=== PATIENT | male | born 1950 | race American Indian/Alaskan Native ===

== ENCOUNTER 2021-01-20 05:54 | Observation (INO) | payer OTHER ==
[2021-01-14 12:56] LABS: Hematocrit 46.6 % (35.5-45.6); Hemoglobin 15.9 gm/dl (11.8-15.2); Mean Corpuscular HGB Conc 34 % (32-34); Mean Corpuscular Volume 89 fl (84-94); Platelet Count 286 K/mm3 (140-440); Red Blood Count 5.26 M/mm3 (3.65-5.03); Red Cell Distribution Width 14.3 % (13.2-15.2)
[2021-01-14 13:14] LABS: Alanine Aminotransferase 41 units/L (7-56); Albumin 4.4 g/dL (3.9-5); BUN/Creatinine Ratio 20; Blood Urea Nitrogen 24 mg/dL (9-20); Hemolysis Index 2
--- NOTE | 2021-01-14 17:37 | Anesthesia Consultation ---
Anesthesia Consult and Med Hx Date of service: 01/20/21 - Airway Anesthetic Teeth Evaluation: Bridges ROM Head & Neck: Adequate Mental/Hyoid Distance: Adequate Mallampati Class: Class II Intubation Access Assessment: Good - Pre-Operative Health Status ASA Pre-Surgery Classification: ASA2 Proposed Anesthetic Plan: General Nerve Block: TAP - Pulmonary Hx Smoking: No Hx Respiratory Symptoms: No (+2FS) Hx Sleep Apnea: No (BAKARI PRE SCREEN HIGH RISK) - Cardiovascular System Hx Hypertension: Yes - Central Nervous System Hx Back Pain: Yes Hx Psychiatric Problems: No - Gastrointestinal Hx Gastroesophageal Reflux Disease: No - Endocrine Hx Renal Disease: No Hx Non-Insulin Dependent Diabetes: No - Other Systems Hx Cancer: Yes (Prostate)
[2021-01-20] MEDS ORDERED: fentaNYL 100 MCG/2 ML INJ IV ONE (06:00)
[2021-01-20] MEDS ORDERED: GABAPENTIN 300 MG CAP PO NR (06:00)
[2021-01-20] MEDS ORDERED: MAGNESIUM OXIDE 400 MG TAB PO ONE (06:00)
[2021-01-20] MEDS ORDERED: CELECOXIB 200 MG CAP PO NR (06:00)
[2021-01-20] MEDS ORDERED: MIDAZOLAM 2 MG/2 ML INJ IV NR (06:00)
[2021-01-20] MEDS ORDERED: ACETAMINOPHEN 500 MG TAB PO ONE (06:00)
[2021-01-20] MEDS ORDERED: BACTERIOSTATIC SODIUM CHLORIDE 0.9% 30 ML VIAL INFILTRATI ONE (06:18)
--- NOTE | 2021-01-20 06:46 | Anesthesia Day of Surgery ---
Anesthesia Day of Surgery - Day of Surgery Patient Examined: Yes Patient H&P Reviewed: Yes Patient is NPO: Yes
[2021-01-20] MEDS: LACTATED RINGERS 1,000 ML IV SCH ×2 (06:50→14:47)
[2021-01-20] MEDS ORDERED: BUPIVACAINE-EPINEPHRINE/PF 0.5%-1:200,000 (30 ML) VIAL INFILTRATI ONE (07:10)
[2021-01-20] MEDS ORDERED: SODIUM CHLORIDE 0.9% 500 ML 500 ML ONE (07:10)
[2021-01-20] MEDS ORDERED: cloNIDine/PF 1,000 MCG/10 ML VIAL EP ONE (07:10)
[2021-01-20] MEDS ORDERED: dexAMETHasone 4 MG/ML VIAL ONE (07:10)
[2021-01-20] MEDS ORDERED: ceFAZolin/STERILE WATER 2 GM/20 ML SYRINGE IV NR (07:35)
[2021-01-20] MEDS ORDERED: CALCIUM CHLORIDE 1,000 MG/10 ML SYRINGE IV ONE ×2 (07:44→09:03)
[2021-01-20] MEDS ORDERED: CITRIC ACID-SOD CITRATE 500 ML IV ONE (07:44)
[2021-01-20] MEDS ORDERED: THROMBIN (RECOMBINANT) 5,000 UNIT VIAL TP ONE ×2 (07:45→09:04)
[2021-01-20] MEDS ORDERED: METHYLENE BLUE 50 MG/10 ML AMP ONE (07:45)
[2021-01-20] MEDS ORDERED: ROCURONIUM 50 MG/5 ML INJ IV ONE (07:57)
[2021-01-20] MEDS ORDERED: propofoL 200 MG/20 ML VIAL IV ONE (07:58)
[2021-01-20] MEDS ORDERED: fentaNYL 100 MCG/2 ML INJ ONE ×2 (07:58→08:16)
[2021-01-20] MEDS ORDERED: ONDANSETRON 4 MG/2 ML INJ ONE (07:58)
[2021-01-20] MEDS ORDERED: LIDOCAINE MPF (2%) 20 MG/1 ML VIAL 5 ML ONE (07:58)
[2021-01-20] MEDS ORDERED: PHENYLEPHRINE/NS 1,000 MCG/10 ML SYRINGE (OR USE) IV ONE (07:58)
[2021-01-20] MEDS ORDERED: NEOSTIGMINE 10MG/10 ML INJ MDV ONE (07:58)
[2021-01-20] MEDS ORDERED: dexAMETHasone 20 MG/5 ML VIAL ONE (07:58)
[2021-01-20] MEDS ORDERED: SUCCINYLCHOLINE CHLORIDE 200 MG/10 ML INJ MDV ONE (07:58)
[2021-01-20] MEDS ORDERED: GLYCOPYRROLATE 0.4 MG/2 ML INJ ONE (07:58)
[2021-01-20] MEDS ORDERED: ePHEDrine SULFATE 50 MG/1 ML INJ ONE ×2 (08:27→10:06)
[2021-01-20] MEDS ORDERED: CITRIC ACID-SOD CITRATE SOLN 500 ML IV SOLN IV ONE (09:03)
[2021-01-20] MEDS ORDERED: SODIUM CHLORIDE 0.9% IRRIG SOLN 2000 ML IR ONE (09:04)
[2021-01-20] MEDS ORDERED: WATER FOR IRRIG STERILE 1,500 ML BOTTLE IR ONE (09:05)
[2021-01-20] MEDS ORDERED: fentaNYL 100 MCG/2 ML INJ IV PRN (09:30)
[2021-01-20] MEDS ORDERED: ONDANSETRON 4 MG/2 ML INJ IV PRN ×2 (10:00→11:16)
[2021-01-20] MEDS ORDERED: METHYLENE BLUE 50 MG/10 ML AMP IV ONE (10:30)
[2021-01-20] MEDS ORDERED: HYDROmorphone 1 MG/1 ML INJ ONE (10:50)
[2021-01-20] MEDS ORDERED: NALOXONE 0.4 MG/1 ML INJ IV PRN (11:16)
--- NOTE | 2021-01-20 11:16 | Short Stay Summary ---
Short Stay Documentation Date of service: 01/20/21 - History H&P: obtained from office - Allergies and Medications Current Medications: Allergies No Known Allergies Allergy (Verified 01/13/21 15:03) Home Medications Medication Instructions Recorded Confirmed Last Taken Type Pravastatin [Pravachol] 40 mg PO DAILY 01/20/21 01/20/21 01/19/21 History Tamsulosin [Flomax] 0.4 mg PO QDAY 01/20/21 01/20/21 01/20/21 05:15 History lisinopriL [Lisinopril] 20 mg PO DAILY 01/20/21 01/20/21 01/19/21 History Active Medications Cefazolin Sodium (Cefazolin/Sterile Water 2 Gm/20 Ml Syringe) 2 gm IV PREOP NR Stop: 01/20/21 16:00 Celecoxib (Celecoxib 200 Mg Cap) 200 mg PO PREOP NR Stop: 01/20/21 23:59 Last Admin: 01/20/21 06:45 Dose: 200 mg Documented by: Fentanyl (Fentanyl 100 Mcg/2 Ml Inj) 50 mcg IV Q5MIN PRN PRN Reason: Pain , Severe (7-10) Stop: 01/20/21 17:00 Gabapentin (Gabapentin 300 Mg Cap) 300 mg PO PREOP NR Stop: 01/20/21 23:59 Last Admin: 01/20/21 06:45 Dose: 300 mg Documented by: Lactated Ringer's (Lactated Ringers) 1,000 mls @ 125 mls/hr IV DIRECT KIKE Last Admin: 01/20/21 06:50 Dose: 125 mls/hr Documented by: Midazolam HCl (Midazolam 2 Mg/2 Ml Inj) 2 mg IV PREOP NR Stop: 01/20/21 23:59 Last Admin: 01/20/21 07:43 Dose: 2 mg Documented by: Ondansetron HCl (Ondansetron 4 Mg/2 Ml Inj) 4 mg IV ONCE PRN PRN Reason: Nausea And Vomiting Stop: 01/20/21 17:00 - Brief post op/procedure progress note Date of procedure: 01/20/21 Pre-op diagnosis: prostate cancer Post-op diagnosis: same Procedure: robotic prostatectomy Anesthesia: GETA Surgeon: GEORGIA REYNOLDS Estimated blood loss: other (600) Pathology: none (prostate) Specimen disposition: to lab Condition: stable - Hospital course Hospital course: bactrim, norco, post op info on chart labs ok karen removed alittle bloating---soup home with leiva - Disposition Condition at discharge: Stable Short Stay Discharge Plan Follow up with: [facility] [Primary Care Provider] - 7 Days
[2021-01-20] MEDS ORDERED: SODIUM CHLORIDE 0.9% 1000 ML 1,000 ML IV SCH (11:30)
--- NOTE | 2021-01-20 11:45 | Operative Report ---
PREOPERATIVE DIAGNOSIS: Prostate cancer. POSTOPERATIVE DIAGNOSIS: Prostate cancer. PROCEDURE: Robotic-assisted laparoscopic prostatectomy. Bladder neck suspension SURGEON: Gurmeet Sierra MD ANESTHESIA: General. PEDIATRIC INTENSIVE PHYSICIAN: Deanne Wiley. ESTIMATED BLOOD LOSS: 600 mL. FLUIDS: Crystalloid Cell Saver 225 mL. DRAINS: Marquis-Coppola drain. COMPLICATIONS: No complications. INDICATIONS: This patient is a 70-year-old referred to the office for prostate cancer, had [place] 6 adenocarcinoma of the prostate. Biopsy performed at the [facility]. Risks, benefits, and complications were explained. The patient agreed to proceed with surgical intervention. DESCRIPTION OF PROCEDURE: The patient was taken to the operative suite, placed in a supine position. After adequate general anesthesia, placed in a modified dorsal lithotomy position, prepped and draped in the sterile fashion. Coley catheter was placed on the operative field. A 1 cm supraumbilical incision was made with a Bovie. Towel clips were placed. Veress needle was then inserted. A drop test was negative. Opening pressure was 3 mL of water. Coley catheter was placed on the operative field. Insufflation of the abdomen with CO2 was performed up to 15 cm of water. The abdomen was marked starting at pubic symphysis, 15 cm cephalad in the midline, 9 cm lateral, additional 9 cm lateral and they were marked for the robotic ports. The 0-degree 10 mm port was then placed under direct vision into the supraumbilical incision. The rest of the ports were placed under direct vision as well. Using 8 mm ports on the left, x2 8 mm port on the right as well as a 10 mm and 5 mm helper port. The patient was then placed in exaggerated Trendelenburg position. The robotic cart was docked between the legs. Attention was then taken to the posterior aspect of the bladder, which was the second arch was scored. Seminal vesicles and vas deferens were dissected out. Vas deferens was transected. Dissection was taken to the apex of the prostate as well. Next, attention was taken to the anterior abdominal wall laterally and lateral umbilical ligament was scored taken down to the pubic rami bilaterally. Bladder flap was dropped without difficulty. Dissection exposed the dorsal vein complex, which was controlled with a 60 mm vascular stapler. The endopelvic fascia was opened bilaterally without difficulty. The patient was found to have a significantly enlarged prostate. Anterior bladder neck was transected. Indigo carmine was administered intravenously. At this point, you could see a significant median lobe. The Coley catheter was deflated. The eye was pulled to the opening where I could use it for anterior traction. Posterior bladder neck was dissected out as well as the trilobes of the prostate. Ureteral orifices could be appreciated. Seminal vesicles and vas deferens were pulled anteriorly. Lateral pedicles were then controlled with a 60 mm vascular stapler. Dissection was then taken to the apex of the prostate, transecting the dorsal vein complex, which was already controlled with a stapler. Coley catheter was removed. Dissection of the apex of the prostate was performed with shelia and the prostate was placed in the EndoCatch bag. Copious irrigation was performed. Adequate hemostasis was achieved, 12 o'clock position, 2-0 Vicryl was placed in the bladder neck to aid with control. Bladder neck reconstruction using a 2-0 Vicryl in interrupted fashion at the 5 o'clock and 7 o'clock position was tapered down to allow insertion of an 18-[place] Coley. A double armed V-Loc was placed in the 6 o'clock position of bladder neck corresponding aspect of the urethra, running stitch was performed bilaterally. A new 18-[place] Coley catheter was inserted. Anastomotic sutures were cinched down. Irrigation, no leak into the bladder, 15 mL of sterile water was used in the balloon. A bladder neck suspension was used with the V-Loc stitch placing it in the pubic rami bilaterally. Garber were cut and removed, platelet-rich plasma and platelet poor plasma was injected around the urethra. Neurovascular bundle could not be appreciated due to the significant amount of adipose tissue. Platelet membrane was also placed around the urethra. A 10 mm Marquis-Coppola drain was brought out through the left-sided port, tied into position on the skin with 2-0 silk. Ports were undocked. No significant bleeding could be appreciated. The patient was then placed in a supine position and the cart was undocked. Supraumbilical incision was extended to allow removal of this large prostate. Kochers were placed, #1 Vicryl in an interrupted fashion was used to close the incision. The other incisions were closed with 2-0 Monocryl in an interrupted fashion. Coley catheter sideport was folded over and tied with 0 silk in an interrupted fashion. The patient tolerated the procedure well. Deanne Wiley was present throughout the case and at the bedside to assist. JOB# [id number] AR/ANNA ADHIKARI
--- NOTE | 2021-01-20 14:15 | Post Anesthesia Evaluation ---
- Post Anesthesia Evaluation Patient Participated: Yes Airway Patent: Yes Stable Respiratory Function: Yes Nausea/Vomiting: No Temp > 96.8F: Yes Pain Manageable: Yes Adequeate Hydration: Yes Anesthesia Complications: No Block Receding Appropriately: Not Applicable (block for post op analgesia)
[2021-01-20] MEDS: MORPHINE 4 MG/1 ML INJ IV PRN ×2 (14:58→22:01)
[2021-01-20] MEDS: ceFAZolin/NS 1 GM/50 ML 1 GM/50 ML BAG IV SCH (17:42)
[2021-01-20] MEDS: HYDROcodone/ACETAMINOPHEN 5-325 MG TAB PO PRN (18:22)
[2021-01-20] MEDS ORDERED: ZOLPIDEM 5 MG TAB PO PRN (22:00)
[2021-01-21] MEDS: ceFAZolin/NS 1 GM/50 ML 1 GM/50 ML BAG IV SCH (02:20)
[2021-01-21] MEDS: HYDROcodone/ACETAMINOPHEN 5-325 MG TAB PO PRN ×3 (05:32→17:42)
[2021-01-21 06:29] LABS: Basophils % (Auto) 0.3 % (0.0-1.8); Hematocrit 40.3 % (35.5-45.6); Hemoglobin 13.7 gm/dl (11.8-15.2); Lymphocytes # (Auto) 1.1 K/mm3 (1.2-5.4); Lymphocytes % (Auto) 12.5 % (13.4-35.0); Mean Corpuscular HGB Conc 34 % (32-34); Mean Corpuscular Volume 91 fl (84-94); Monocytes # (Auto) 0.7 K/mm3 (0.0-0.8); Monocytes % (Auto) 8.8 % (0.0-7.3); Platelet Count 244 K/mm3 (140-440); Red Blood Count 4.44 M/mm3 (3.65-5.03); Red Cell Distribution Width 14.8 % (13.2-15.2)
[2021-01-21 06:47] LABS: BUN/Creatinine Ratio 14; Blood Urea Nitrogen 19 mg/dL (9-20); Calcium 8.2 mg/dL (8.4-10.2); Hemolysis Index 5
--- NOTE | 2021-01-21 07:04 | Consultation ---
History of Present Illness - Reason for Consult Consult date: 01/20/21 Medical management Requesting physician: GEORGIA REYNOLDS - History of Present Illness S/p prostatectomy for prostate cancer Postop patient doing well. No complications. No shortness of breath. Past History Past Medical History: hyperlipidemia Past Surgical History: Other (Prostatectomy) Social history: lives with family, full code Family history: hypertension Medications and Allergies Allergies Allergy/AdvReac Type Severity Reaction Status Date / Time No Known Allergies Allergy Verified 01/13/21 15:03 Home Medications Medication Instructions Recorded Confirmed Last Taken Type Pravastatin [Pravachol] 40 mg PO DAILY 01/20/21 01/20/21 01/19/21 History Tamsulosin [Flomax] 0.4 mg PO QDAY 01/20/21 01/20/21 01/20/21 05:15 History lisinopriL [Lisinopril] 20 mg PO DAILY 01/20/21 01/20/21 01/19/21 History Active Meds: Active Medications Hydrocodone Bitart/Acetaminophen (Hydrocodone/Acetaminophen 5-325 Mg Tab) 2 each PO Q4H PRN PRN Reason: Pain, Moderate (4-6) Last Admin: 01/21/21 05:32 Dose: 2 each Documented by: Lactated Ringer's (Lactated Ringers) 1,000 mls @ 125 mls/hr IV DIRECT KIKE Last Admin: 01/20/21 14:47 Dose: 125 mls/hr Documented by: Sodium Chloride (Nacl 0.9% 1000 Ml) 1,000 mls @ 125 mls/hr IV DIRECT KIKE Lisinopril (Lisinopril 20 Mg Tab) 20 mg PO DAILY KIKE Morphine Sulfate (Morphine 4 Mg/1 Ml Inj) 4 mg IV Q4H PRN PRN Reason: Pain , Severe (7-10) Last Admin: 01/20/21 22:01 Dose: 4 mg Documented by: Naloxone HCl (Naloxone 0.4 Mg/1 Ml Inj) 0.1 mg IV Q2MIN PRN PRN Reason: Res Rate </= 8 or 02 SAT < 92% Ondansetron HCl (Ondansetron 4 Mg/2 Ml Inj) 4 mg IV Q8H PRN PRN Reason: Nausea And Vomiting Pravastatin Sodium (Pravastatin 40 Mg Tab) 40 mg PO DAILY KIKE Zolpidem Tartrate (Zolpidem 5 Mg Tab) 5 mg PO QHS PRN PRN Reason: Sleep Review of Systems All systems: negative Exam - Constitutional Vitals: Temp Pulse Resp BP Pulse Ox 98.2 F 92 H 17 131/72 98 01/21/21 05:05 01/21/21 05:05 01/21/21 05:32 01/21/21 05:05 01/21/21 05:05 General appearance: Present: no acute distress, well-nourished - EENT Eyes: Present: PERRL ENT: hearing intact, clear oral mucosa - Neck Neck: Present: supple, normal ROM - Respiratory Respiratory effort: normal Respiratory: bilateral: CTA - Cardiovascular Heart rate: 78 Rhythm: regular Heart Sounds: Present: S1 & S2. Absent: rub, click - Extremities Extremities: pulses symmetrical, No edema Peripheral Pulses: within normal limits - Abdominal General gastrointestinal: Present: soft, non-tender, non-distended, normal bowel sounds Male genitourinary: Present: normal - Integumentary Integumentary: Present: clear, warm, dry - Musculoskeletal Musculoskeletal: gait normal, strength equal bilaterally - Psychiatric Psychiatric: appropriate mood/affect, intact judgment & insight - Neurologic Neurologic: CNII-XII intact, moves all extremities Results - Labs CBC & Chem 7: 01/21/21 06:09 01/21/21 06:09 Labs: Abnormal lab results 01/21/21 01/21/21 Range/Units 06:09 06:09 Lymph % (Auto) 12.5 L (13.4-35.0) % [place] % (Auto) 8.8 H (0.0-7.3) % Lymph # (Auto) 1.1 L (1.2-5.4) K/mm3 Seg Neutrophils % 78.4 H (40.0-70.0) % Creatinine 1.4 H (0.8-1.3) mg/dL Glucose 140 H (75-100) mg/dL Calcium 8.2 L (8.4-10.2) mg/dL Assessment and Plan - Patient Problems (1) IVONNE (acute kidney injury) Current Visit: Yes Status: Acute Plan to address problem: IV fluids for now Vasomotor nephropathy (2) BPH (benign prostatic hyperplasia) Current Visit: Yes Status: Chronic Qualifiers: Lower urinary tract symptom presence: symptoms present Plan to address problem: Also had prostate cancer Prostatectomy done today (3) Hyperlipidemia Current Visit: Yes Status: Chronic Qualifiers: Hyperlipidemia type: mixed hyperlipidemia Qualified Code(s): E78.2 - Mixed hyperlipidemia Plan to address problem: Continue statins (4) HTN (hypertension) Current Visit: Yes Status: Chronic Qualifiers: Hypertension type: essential hypertension Qualified Code(s): I10 - Essential (primary) hypertension Plan to address problem: Continue antihypertensives (5) DVT prophylaxis Current Visit: Yes Status: Acute Plan to address problem: On SCDs and GI prophylaxis
[2021-01-21] MEDS: LISINOPRIL 20 MG TAB PO SCH (09:03)
[2021-01-21] MEDS: SODIUM CHLORIDE 0.9% 1000 ML 1,000 ML IV SCH ×2 (09:12→17:46)
[2021-01-21] MEDS: PRAVASTATIN 40 MG TAB PO SCH (10:39)
--- NOTE | 2021-01-21 14:43 | Post Anesthesia Evaluation ---
- Post Anesthesia Evaluation Patient Participated: Yes Airway Patent: Yes Stable Respiratory Function: Yes Nausea/Vomiting: No Pain Manageable: No Adequeate Hydration: Yes Anesthesia Complications: No Block Receding Appropriately: Not Applicable Patient on Ventilator: No Other Comments: pt. a+ox3. denies pain. resting comfortable in bed.
--- NOTE | 2021-01-21 14:47 | Progress Note ---
Assessment and Plan (1) IVONNE (acute kidney injury) Current Visit: Yes Status: Acute Plan to address problem: IV fluids for now, Vasomotor nephropathy Repeat BMP in the morning (2) BPH (benign prostatic hyperplasia) Current Visit: Yes Status: Chronic Qualifiers: Lower urinary tract symptom presence: symptoms present Plan to address problem: Also had prostate cancer Prostatectomy done today (3) Hyperlipidemia Current Visit: Yes Status: Chronic Qualifiers: Hyperlipidemia type: mixed hyperlipidemia Qualified Code(s): E78.2 - Mixed hyperlipidemia Plan to address problem: Continue statins (4) HTN (hypertension) Current Visit: Yes Status: Chronic Qualifiers: Hypertension type: essential hypertension Qualified Code(s): I10 - Essential (primary) hypertension Plan to address problem: Continue antihypertensives (5) DVT prophylaxis Current Visit: Yes Status: Acute Plan to address problem: On SCDs and GI prophylaxis Subjective Date of service: 01/21/21 Interval history: Patient seen and examined. Medical records and medication list reviewed. No acute event overnight noted by the RN. Patient denies any chest pain or difficulty breathing. Patient is tolerating diet. Discussed plan of care at bedside with patient. Objective - Exam Narrative Exam: GENERAL: well-developed and well-nourished male lying on bed appeared to be in no discomfort. HEENT: Normocephalic. Atraumatic. No conjunctival congestion or icterus. Patient has moist mucous membranes. NECK: Supple. Trachea midline. CHEST/LUNGS: Clear to auscultated bilaterally, breathing nonlabored. No wheezes crackles or rhonchi. HEART/CARDIOVASCULAR: Regular in rate and rhythm. S1 and S2 positive. ABDOMEN: Abdomen is soft, nontender. Patient has normal bowel sounds. SKIN: There is no rash. Warm and dry. NEURO: No focal motor deficit. Follows command. MUSCULOSKELETAL: No joint effusion or tenderness. EXTRIMITY: No edema, no cyanosis or clubbing. PSYCH: Cooperative. - Constitutional Vitals: Vital Signs - 12hr 01/21/21 01/21/21 01/21/21 05:05 05:32 06:32 Temperature 98.2 F Pulse Rate 92 H Respiratory 18 17 17 Rate Blood Pressure 131/72 O2 Sat by Pulse 98 Oximetry 01/21/21 01/21/21 01/21/21 07:31 08:46 09:03 Temperature 98.2 F Pulse Rate 76 76 Respiratory 18 20 Rate Blood Pressure 106/72 106/72 O2 Sat by Pulse 98 Oximetry 01/21/21 01/21/21 01/21/21 09:12 10:12 11:31 Temperature 98.2 F Pulse Rate 79 Respiratory 20 18 Rate Blood Pressure 121/83 O2 Sat by Pulse 97 99 Oximetry - Labs CBC & Chem 7: 01/21/21 06:09 01/22/21 10:45 Labs: Abnormal lab results 01/21/21 01/21/21 Range/Units 06:09 06:09 Lymph % (Auto) 12.5 L (13.4-35.0) % [place] % (Auto) 8.8 H (0.0-7.3) % Lymph # (Auto) 1.1 L (1.2-5.4) K/mm3 Seg Neutrophils % 78.4 H (40.0-70.0) % Creatinine 1.4 H (0.8-1.3) mg/dL Glucose 140 H (75-100) mg/dL Calcium 8.2 L (8.4-10.2) mg/dL
[2021-01-22] MEDS ORDERED: METOCLOPRAMIDE 10 MG/2 ML INJ IV ONE (00:25)
[2021-01-22] MEDS: SODIUM CHLORIDE 0.9% 1000 ML 1,000 ML IV SCH (01:53)
[2021-01-22 07:45] VITALS: BP 131/83
--- NOTE | 2021-01-22 09:00 | XRay Report ---
ABDOMINAL SERIES WITH CHEST X-RAY ONE VIEW HISTORY: Vomiting COMPARISON: None. IMPRESSION: Supine and upright views of the abdomen demonstrate a few mildly dilated loops of small b owel in the mid abdomen measuring up to 5 cm in diameter. There are multiple air-fluid levels on the upright view. There is normal gas in the colon. No evidence for free air or space-occupying mass. The se findings are concerning for a partial small bowel obstruction. Consider further evaluation with CT abdomen pelvis preferably with IV and oral contrast possible. Single view of the chest demonstrates subtle discoid airspace opacities in the right infrahilar regio n and lingular region consistent with discoid atelectasis. No convincing infiltrate, pleural fluid or pneumothorax. Normal heart size. Signer Name: Julio Duran Jr, MD Signed: 01/22/2021 8:55 AM Workstation Name: [id number]
[2021-01-22] MEDS: LISINOPRIL 20 MG TAB PO SCH (10:29)
[2021-01-22] MEDS: PRAVASTATIN 40 MG TAB PO SCH (10:29)
[2021-01-22] MEDS ORDERED: METOCLOPRAMIDE 10 MG/2 ML INJ IV SCH (10:30)
--- NOTE | 2021-01-22 11:23 | Progress Note ---
Subjective Date of service: 01/22/21 Interval history: vomiting resolved abd series mild ileus pt feels better home with leiva Objective - Constitutional Vitals: Vital Signs - 12hr 01/22/21 01/22/21 01/22/21 04:48 05:24 07:18 Temperature 99.1 F 98.6 F Pulse Rate 97 H 88 84 Respiratory 18 17 16 Rate Blood Pressure 172/100 131/83 Blood Pressure 138/96 [Left] O2 Sat by Pulse 94 98 94 Oximetry - Labs CBC & Chem 7: 01/21/21 06:09 01/21/21 06:09 Medications & Allergies - Medications Allergies/Adverse Reactions: Allergies No Known Allergies Allergy (Verified 01/13/21 15:03) Home Medications: Home Medications Medication Instructions Recorded Confirmed Last Taken Type Pravastatin [Pravachol] 40 mg PO DAILY 01/20/21 01/20/21 01/19/21 History Tamsulosin [Flomax] 0.4 mg PO QDAY 01/20/21 01/20/21 01/20/21 05:15 History lisinopriL [Lisinopril] 20 mg PO DAILY 01/20/21 01/20/21 01/19/21 History Active Medications: Generic Name Dose Route Start Last Admin Trade Name Freq PRN Reason Stop Dose Admin Hydrocodone Bitart/Acetaminophen 2 each 01/20/21 12:00 01/21/21 17:42 Hydrocodone/Acetaminophen 5-325 Mg Tab PO 2 each Q4H PRN Administration Pain, Moderate (4-6) Sodium Chloride 1,000 mls @ 75 mls/hr 01/21/21 07:30 01/22/21 01:53 Nacl 0.9% 1000 Ml IV 75 mls/hr DIRECT KIKE Administration Lisinopril 20 mg 01/21/21 10:00 01/22/21 10:29 Lisinopril 20 Mg Tab PO 20 mg DAILY KIKE Administration Metoclopramide HCl 10 mg 01/22/21 10:30 01/22/21 10:29 Metoclopramide 10 Mg/2 Ml Inj IV 01/22/21 15:00 10 mg ONCE KIKE Administration Morphine Sulfate 4 mg 01/20/21 11:16 01/20/21 22:01 Morphine 4 Mg/1 Ml Inj IV 4 mg Q4H PRN Administration Pain , Severe (7-10) Naloxone HCl 0.1 mg 01/20/21 11:16 Naloxone 0.4 Mg/1 Ml Inj IV Q2MIN PRN Res Rate </= 8 or 02 SAT < 92% Ondansetron HCl 4 mg 01/20/21 11:16 01/21/21 17:42 Ondansetron 4 Mg/2 Ml Inj IV 4 mg Q8H PRN Administration Nausea And Vomiting Pravastatin Sodium 40 mg 01/21/21 10:00 01/22/21 10:29 Pravastatin 40 Mg Tab PO 40 mg DAILY KIKE Administration Zolpidem Tartrate 5 mg 01/20/21 22:00 01/21/21 23:54 Zolpidem 5 Mg Tab PO 5 mg QHS PRN Administration Sleep
[2021-01-22 11:25] LABS: BUN/Creatinine Ratio 16; Blood Urea Nitrogen 19 mg/dL (9-20); Calcium 8.2 mg/dL (8.4-10.2); Hemolysis Index 2
--- NOTE | 2021-01-22 15:35 | Progress Note ---
Assessment and Plan (1) IVONNE (acute kidney injury) Current Visit: Yes Status: Acute Plan to address problem: Vasomotor nephropathy, improved with IV fluid Repeat BMP in 1 week (2) BPH (benign prostatic hyperplasia) Current Visit: Yes Status: Chronic Qualifiers: Lower urinary tract symptom presence: symptoms present Plan to address problem: Also had prostate cancer s/p Prostatectomy (3) Hyperlipidemia Current Visit: Yes Status: Chronic Qualifiers: Hyperlipidemia type: mixed hyperlipidemia Qualified Code(s): E78.2 - Mixed hyperlipidemia Plan to address problem: Continue statins (4) HTN (hypertension) Current Visit: Yes Status: Chronic Qualifiers: Hypertension type: essential hypertension Qualified Code(s): I10 - Essential (primary) hypertension Plan to address problem: Continue antihypertensives (5) DVT prophylaxis Current Visit: Yes Status: Acute Plan to address problem: On SCDs and GI prophylaxis Disposition: Patient medically stable for discharge. Please follow-up outpatient with a neurologist for repeat BMP in 1 week Subjective Date of service: 01/22/21 Interval history: Patient seen and examined. Medical records and medication list reviewed. No acute event overnight noted by the RN. Patient denies any chest pain or difficulty breathing. Patient is tolerating diet. Discussed plan of care at bedside with patient. Patient plan for discharge today Renal function stable Objective - Exam Narrative Exam: GENERAL: well-developed and well-nourished male lying on bed appeared to be in no discomfort. HEENT: Normocephalic. Atraumatic. No conjunctival congestion or icterus. Patient has moist mucous membranes. NECK: Supple. Trachea midline. CHEST/LUNGS: Clear to auscultated bilaterally, breathing nonlabored. No wheezes crackles or rhonchi. HEART/CARDIOVASCULAR: Regular in rate and rhythm. S1 and S2 positive. ABDOMEN: Abdomen is soft, nontender. Patient has normal bowel sounds. SKIN: There is no rash. Warm and dry. NEURO: No focal motor deficit. Follows command. MUSCULOSKELETAL: No joint effusion or tenderness. EXTRIMITY: No edema, no cyanosis or clubbing. PSYCH: Cooperative. - Constitutional Vitals: Vital Signs - 12hr 01/22/21 01/22/21 01/22/21 04:48 05:24 07:18 Temperature 99.1 F 98.6 F Pulse Rate 97 H 88 84 Respiratory 18 17 16 Rate Blood Pressure 172/100 131/83 Blood Pressure 138/96 [Left] O2 Sat by Pulse 94 98 94 Oximetry - Labs CBC & Chem 7: 01/21/21 06:09 01/22/21 10:45 Labs: Abnormal lab results 01/22/21 Range/Units 10:45 Sodium 136 L (137-145) mmol/L Glucose 101 H (75-100) mg/dL Calcium 8.2 L (8.4-10.2) mg/dL
== END 2021-01-22 15:00 | disposition home or self-care (01) ==
LOC: OR 05:54 → 3B-SURG 11:16
PROVIDERS: ADMIT Urology; ATTEND Urology
DX: N17.9 Acute kidney failure, unspecified (principal); Z20.822 Contact with and (suspected) exposure to COVID-19; C61 Malignant neoplasm of prostate; N40.1 Benign prostatic hyperplasia with lower urinary tract symptoms; I10 Essential (primary) hypertension; E78.5 Hyperlipidemia, unspecified
CPT/HCPCS: 36415; 55866; 64450; 74022; 80048; 80053; 85025; 85027; 86850; 86900; 86901; 88309; 94760; 96361; 96365; 96366; 96375; 96376; A4217; A9270; G0378; J0330; J0690; J0735; J1100; J1170; J2250; J2270; J2370; J2405; J2704; J2710; J2765; J3010; J7030; J7040; J7120; Q9968; S2900; U0003

== ENCOUNTER 2021-02-16 17:59 | Emergency (ER) | payer OTHER ==
[2021-02-16 18:52] VITALS: BP 130/82
--- NOTE | 2021-02-16 18:56 | Emergency Department Report ---
ED General Adult HPI - General Chief complaint: Urogenital-Male Stated complaint: GROIN PAIN Time Seen by Provider: 02/16/21 18:51 Source: patient Mode of arrival: Ambulatory Limitations: No Limitations - History of Present Illness Initial comments: 70-year-old male patient with history of prostate cancer status post prostatectomy last month presents to the emergency department with complaints of painful hematuria and lower abdominal pain starting 2 days ago. Patient is not anticoagulated. He is not currently on radiation or chemotherapy. His prostate cancer was reportedly nonmetastatic. Surgery was reportedly without complications. No recent trauma. No reported concern for STD exposure. Denies fever, chills, back pain, nausea, vomiting, testicular pain/swelling. Denies all other complaints at this time. Severity scale (0 -10): 8 - Related Data Home Medications Medication Instructions Recorded Confirmed Last Taken Pravastatin [Pravachol] 40 mg PO DAILY 01/20/21 01/20/21 01/19/21 Tamsulosin [Flomax] 0.4 mg PO QDAY 01/20/21 01/20/21 01/20/21 05:15 lisinopriL [Lisinopril] 20 mg PO DAILY 01/20/21 01/20/21 01/19/21 Previous Rx's Medication Instructions Recorded Last Taken Type Ciprofloxacin HCl [Ciprofloxacin 500 mg PO BID 7 Days tablet 02/16/21 Unknown Rx TAB] Phenazopyridine [Pyridium] 200 mg PO BID 3 Days tab 02/16/21 Unknown Rx Allergies Allergy/AdvReac Type Severity Reaction Status Date / Time No Known Allergies Allergy Verified 01/13/21 15:03 ED Review of Systems ROS: Stated complaint: GROIN PAIN Other details as noted in HPI Other: GENERAL: Negative for fever, chills, weight change, anorexia, fatigue. ENT: Negative for ear pain, difficulty hearing, sore throat, nasal congestion, epistaxis. CARDIOVASCULAR: Negative for chest pain, palpitations, lower extremity swelling. PULMONARY: Negative for cough, dyspnea, wheezing, orthopnea, cyanosis. GASTROINTESTINAL: Positive for abdominal pain. GENITOURINARY: Positive for hematuria and dysuria. MUSCULOSKELETAL: Negative for joint pain, joint swelling, myalgias, back pain, neck pain. NEUROLOGICAL: Negative for headache, seizure, syncope, paresthesias, weakness. INTEGUMENTARY: Negative for erythema, rash, diaphoresis, laceration, ecchymosis. HEMATOLOGICAL: Negative for hemoptysis, hematemesis, hematochezia, hematuria. PSYCHIATRIC: Negative for hallucinations, suicidal ideation, homicidal ideation, anxiety, depression. ED Past Medical Hx - Past Medical History Previous Medical History?: Yes Hx Hypertension: Yes Hx Renal Disease: No Hx of Cancer: Yes (prostate) Hx HIV: No - Surgical History Past Surgical History?: Yes Additional Surgical History: prostate removed - Social History Smoking Status: Never Smoker - Medications Home Medications: Home Medications Medication Instructions Recorded Confirmed Last Taken Type Pravastatin [Pravachol] 40 mg PO DAILY 01/20/21 01/20/21 01/19/21 History Tamsulosin [Flomax] 0.4 mg PO QDAY 01/20/21 01/20/21 01/20/21 05:15 History lisinopriL [Lisinopril] 20 mg PO DAILY 01/20/21 01/20/21 01/19/21 History Ciprofloxacin HCl [Ciprofloxacin 500 mg PO BID 7 Days tablet 02/16/21 Unknown Rx TAB] Phenazopyridine [Pyridium] 200 mg PO BID 3 Days tab 02/16/21 Unknown Rx ED Physical Exam - General Limitations: No Limitations - Other Other exam information: General: Awake and alert. No acute distress. Head: Atraumatic, normocephalic. Eyes: EOMI. Pupils are equal and round. Normal sclera and conjunctiva. ENT: Oral mucosa is moist. Normal pharyngeal exam. Neck: Supple. No lymphadenopathy. Pulmonary: No respiratory distress. Clear to auscultation bilaterally. Cardiac: Regular rate and rhythm. Pulses are palpable and equal bilaterally. No lower extremity cyanosis or edema. Skin: Warm and dry. No rashes. Abdomen: Soft, non-protuberant. Suprapubic tenderness without guarding, rigidity, or rebound. Bowel sounds are normal. No organomegaly or masses noted. Back: Normal alignment. No CVA tenderness. Extremities: Symmetrical. Full range of motion intact. Neurological: Alert and oriented, appropriately interactive, no focal deficits. Psych: Cooperative. Appropriate mood and affect. Speech is evenly metered. Thoughts are logically construed. ED Course Vital Signs 02/16/21 18:49 Temperature 98.4 F Pulse Rate 90 Respiratory 18 Rate Blood Pressure 130/82 [Right] O2 Sat by Pulse 96 Oximetry ED Medical Decision Making - Lab Data Result diagrams: 02/16/21 19:04 02/16/21 19:04 - Radiology Data [facility] [address] [id number] Cat Scan Report Signed Patient: EVAN WILLOUGHBY MR#: [id number] [birth year] : 1950 Acct:[id number] Age/Sex: 70 / M ADM Date: 02/16/21 Loc: ED Attending Dr: Ordering Physician: ZANA DAVIES Date of Service: 02/16/21 Procedure(s): CT abdomen pelvis wo con Accession Number(s): [id number] cc: ZANA DAVIES CT ABDOMEN AND PELVIS WITHOUT CONTRAST INDICATION / CLINICAL INFORMATION: painful hematuria, abd pain, recent prostatectomy. TECHNIQUE: Axial CT images were obtained through the abdomen and pelvis without IV contrast. All CT scans at this location are performed using CT dose reduction for ALARA by means of automated exposure control. COMPARISON: Acute abdominal series performed on 01/22/2021. FINDINGS: Streak artifact from hip arthroplasties limits evaluation of the pelvis. LOWER CHEST: There is evidence of prior granulomatous disease. The lung bases are otherwise clear. Severe coronary atherosclerosis is noted. No other significant abnormality. LIVER: No significant abnormality. GALLBLADDER: No significant abnormality. BILE DUCTS: No significant abnormality. PANCREAS: No significant abnormality. SPLEEN: No significant abnormality. ADRENALS: No significant abnormality. RIGHT KIDNEY / URETER: 2 tiny right renal stones are seen measuring less than 2 mm. No other significant abnormality. LEFT KIDNEY / URETER: There are multiple tiny left renal stones measuring less than 2 mm. No other significant abnormality. STOMACH / SMALL BOWEL: No significant abnormality. COLON: No significant abnormality. APPENDIX: No significant abnormality. PERITONEUM: No free fluid. No free air. No fluid collection. LYMPH NODES: No significant adenopathy. AORTA / ARTERIES: The aorta is normal in caliber with mild generalized atherosclerosis. IVC / VEINS: No significant abnormality. URINARY BLADDER: No significant abnormality. REPRODUCTIVE ORGANS: Prior prostatectomy. Mild fat stranding along the prostate bed is consistent with recent surgery. No acute abnormality. ADDITIONAL FINDINGS: None. SKELETAL SYSTEM: No acute abnormality. There are mild degenerative changes of the spine. 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 IMPRESSION: 1. No acute abnormality. 2. Additional findings as above. Signer Name: Maximo Moctezuma MD Signed: 02/16/2021 9:09 PM Workstation Name: [id number] Transcribed By: JEANETTE Dictated By: Maximo Moctezuma MD Electronically Authenticated By: Maximo Moctezuma MD Signed Date/Time: 02/16/212108 DD/ 04 TD/TT: Print Cancel - Medical Decision Making Differential diagnosis including but not limited to: pyelonephritis, nephrolithiasis, hemorrhagic cystitis, acute kidney injury, metastatic disease, ureteral obstruction On evaluation, patient remains stable. Repeat abdominal exam is benign. Labs s how mildly elevated creatinine as compared with renal function from last month. GFR decreased from 60 to 49. Urinalysis consistent with hemorrhagic cystitis. Due to patient's recent prostatectomy, CT of the abdomen/pelvis obtained for further evaluation. IV contrast withheld due to renal function. CT shows postsurgical changes without acute process. Review of past medical records indicates patient was discharged home with prescription for Bactrim following his surgery. Urine culture has been sent. Patient will be started on Ciprofloxacin pending urine culture results. He will also be prescribed Pyridium for symptomatic relief. Emphasized the importance of refraining from strenuous physical activity while taking fluoroquinolones due to increased risk of tendon rupture. Patient expressed understanding and is agreeable to plan of care. Patient instructed to call his urologist tomorrow and schedule follow-up this week. Strict return precautions provided. Case discussed with Dr. Albert, attending emergency physician, who agrees with plan of care. Repeat exam is unremarkable and benign. History, exam, diagnostic testing, and current condition do not suggest worrisome pathology to warrant further testing, continued ED treatment, admission, or surgical evaluation at this point. Given the low probability of a significant medical illness, it would be more likely to result in harm than benefit to perform further testing at this stage. Discussed findings, presumptive diagnosis, need for follow-up and specific signs/symptoms that should prompt immediate return to the emergency department. Instructions were explained in detail to the patient in addition to giving written discharge information. Patient expressed understanding and was given the opportunity to ask questions, all of which were satisfactorily answered prior to discharge home. Critical care attestation.: If time is entered above; I have spent that time in minutes in the direct care of this critically ill patient, excluding procedure time. ED Disposition Clinical Impression: Hemorrhagic cystitis Disposition: DC-01 TO HOME OR SELFCARE Is pt being admited?: No Does the pt Need Aspirin: No Condition: Stable Instructions: Hemorrhagic Cystitis Additional Instructions: Take Ciprofloxacin with food as directed. Take Pyridium as directed for bladder spasm. Follow-up with your urologist this week. Call tomorrow to schedule an appointment. Return to the emergency department immediately for new or worsening symptoms. Prescriptions: Ciprofloxacin HCl [Ciprofloxacin TAB] 500 mg PO BID 7 Days tablet Phenazopyridine [Pyridium] 200 mg PO BID 3 Days tab Referrals: GEORGIA REYNOLDS MD [Staff Physician] - 3-5 Days Time of Disposition: 21:37
[2021-02-16 19:40] LABS: Bilirubin,Urine NEG (Negative); Blood,Urine LG (Negative); Color,Urine Amber (Yellow)
[2021-02-16 19:42] LABS: RBC,Urine > 182.0 /HPF (0.0-6.0)
[2021-02-16 19:51] LABS: Basophils % (Auto) 0.5 % (0.0-1.8); Eosinophils # (Auto) 0.3 K/mm3 (0.0-0.4); Eosinophils % (Auto) 5.5 % (0.0-4.3); Hematocrit 44.5 % (35.5-45.6); Hemoglobin 14.9 gm/dl (11.8-15.2); Lymphocytes # (Auto) 2.5 K/mm3 (1.2-5.4); Lymphocytes % (Auto) 38.5 % (13.4-35.0); Mean Corpuscular HGB Conc 34 % (32-34); Mean Corpuscular Volume 90 fl (84-94); Monocytes # (Auto) 0.6 K/mm3 (0.0-0.8); Platelet Count 315 K/mm3 (140-440); Red Blood Count 4.92 M/mm3 (3.65-5.03); Red Cell Distribution Width 14.5 % (13.2-15.2)
[2021-02-16 19:55] LABS: Albumin 4.4 g/dL (3.9-5); Calcium 8.9 mg/dL (8.4-10.2)
--- NOTE | 2021-02-16 21:14 | Cat Scan Report ---
CT ABDOMEN AND PELVIS WITHOUT CONTRAST INDICATION / CLINICAL INFORMATION: painful hematuria, abd pain, recent prostatectomy. TECHNIQUE: Axial CT images were obtained through the abdomen and pelvis without IV contrast. All CT scans at [facility] location are performed using CT dose reduction for ALARA by means of automated exposure control. COMPARISON: Acute abdominal series performed on 01/22/2021. FINDINGS: Streak artifact from hip arthroplasties limits evaluation of the pelvis. LOWER CHEST: There is evidence of prior granulomatous disease. The lung bases are otherwise clear. [place] coronary atherosclerosis is noted. No other significant abnormality. LIVER: No significant abnormality. GALLBLADDER: No significant abnormality. BILE DUCTS: No significant abnormality. PANCREAS: No significant abnormality. SPLEEN: No significant abnormality. ADRENALS: No significant abnormality. RIGHT KIDNEY / URETER: 2 tiny right renal stones are seen measuring less than 2 mm. No other signific ant abnormality. LEFT KIDNEY / URETER: There are multiple tiny left renal stones measuring less than 2 mm. No other si gnificant abnormality. STOMACH / SMALL BOWEL: No significant abnormality. COLON: No significant abnormality. APPENDIX: No significant abnormality. PERITONEUM: No free fluid. No free air. No fluid collection. LYMPH NODES: No significant adenopathy. AORTA / ARTERIES: The aorta is normal in caliber with mild generalized atherosclerosis. IVC / VEINS: No significant abnormality. URINARY BLADDER: No significant abnormality. REPRODUCTIVE ORGANS: Prior prostatectomy. Mild fat stranding along the prostate bed is consistent wit h recent surgery. No acute abnormality. ADDITIONAL FINDINGS: None. SKELETAL SYSTEM: No acute abnormality. There are mild degenerative changes of the spine. Bilateral hi p arthroplasties are unremarkable. 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 IMPRESSION: 1. No acute abnormality. 2. Additional findings as above. Signer Name: Maximo Moctezuma MD Signed: 02/16/2021 9:09 PM Workstation Name: [id number]
== END 2021-02-16 23:11 | disposition home or self-care (01) ==
LOC: ED 17:59
DX: N30.81 Other cystitis with hematuria (principal); I10 Essential (primary) hypertension; Z98.890 Other specified postprocedural states; Z85.46 Personal history of malignant neoplasm of prostate; Z79.2 Long term (current) use of antibiotics; Z79.899 Other long term (current) drug therapy
CPT/HCPCS: 36415; 74176; 80053; 81001; 83735; 85025; 87086